=== PATIENT | female | born 1985 | race Caucasian/White ===

== ENCOUNTER 2024-10-06 14:30 | Emergency (ER) | payer OTHER ==
[~2024-10-06] VITALS: Ht 172.7 cm; Wt 117.9 kg
[2024-10-06] MEDS ORDERED: CEPH500 PO ×2 (16:15→16:16)
== END 2024-10-06 16:24 | disposition home or self-care (01) ==
LOC: ER 14:30
DX: L03.115 Cellulitis of right lower limb (principal); Z88.5 Allergy status to narcotic agent; Z59.89 Other problems related to housing and economic circumstances
CPT/HCPCS: 93971; 99283-25